=== PATIENT | male | born 1970 | race Caucasian/White ===

== ENCOUNTER 2018-05-14 14:19 | Inpatient (IN) | payer OTHER ==
[2018-05-14] MEDS ORDERED: Sodium Chloride 0.9% 1,000 ML IV STA (14:44)
--- NOTE | 2018-05-14 14:45 | ED PDOC ---
HPI: Chest Pain Time Seen by Provider: 05/14/18 14:43 Chief Complaint (Nursing): Chest Pain Chief Complaint (Provider): Chest pain History Per: Patient History/Exam Limitations: no limitations Onset/Duration Of Symptoms: Days (today) Additional Complaint(s): Pt. with chest pain and dyspnea off and on. No numbness, tingles, weakness. No headaches. No leg pain or long distance travel. No hormone pills. No abd pain. No cough. Past Medical History Reviewed: Nursing Documentation, Vital Signs Vital Signs: Last Vital Signs Temp 98.0 F 05/14/18 14:26 Pulse 59 L 05/14/18 14:26 Resp 16 05/14/18 14:26 BP 138/74 05/14/18 14:26 Pulse Ox 100 05/14/18 14:26 - Medical History PMH: HTN - Surgical History Surgical History: No Surg Hx - Family History Family History: States: Unknown Family Hx - Living Arrangements Living Arrangements: With Family - Allergies Allergies/Adverse Reactions: Allergies Allergy/AdvReac Type Severity Reaction Status Date / Time No Known Allergies Allergy Verified 05/14/18 14:26 Review of Systems ROS Statement: Except As Marked, All Systems Reviewed And Found Negative Cardiovascular: Positive for: Chest Pain Respiratory: Positive for: Shortness of Breath Physical Exam - Reviewed Nursing Documentation Reviewed: Yes Vital Signs Reviewed: Yes - Physical Exam Appears: Positive for: Non-toxic, No Acute Distress Head Exam: Positive for: ATRAUMATIC, NORMAL INSPECTION, NORMOCEPHALIC Skin: Positive for: Normal Color, Warm, DRY Eye Exam: Positive for: EOMI, Normal appearance, PERRL ENT: Positive for: Normal ENT Inspection Neck: Positive for: Normal, Painless ROM Cardiovascular/Chest: Positive for: Regular Rate, Rhythm Respiratory: Positive for: CNT, Normal Breath Sounds Gastrointestinal/Abdominal: Positive for: Normal Exam, Soft. Negative for: Tenderness Back: Positive for: Normal Inspection. Negative for: L CVA Tenderness, R CVA Tenderness Extremity: Positive for: Normal ROM. Negative for: Tenderness Neurological/Psych: Positive for: Awake, Alert, Normal Tone - Laboratory Results Result Diagrams: 05/14/18 14:52 05/14/18 14:52 Lab Results: no acute - ECG ECG: Positive for: Interpreted By Me, Viewed By Me ECG Rhythm: Positive for: Normal QRS, Normal ST Segment, Sinus Rhythm O2 Sat by Pulse Oximetry: 100 Pulse Ox Interpretation: Normal - Radiology X-Ray: Read By Radiologist X-Ray Interpretation: No Acute Disease - Progress ED Course And Treament: 1541: Stable. AAOx3. Pt. and family request Dr. Maher for admit. Spoke with Kenneth for Dr. Maher. Will admit tele. Pt. is pain free. Disposition - Clinical Impression Clinical Impression: Chest pain - Patient ED Disposition Is Patient to be Admitted: No Counseled Patient/Family Regarding: Studies Performed, Diagnosis - Disposition Disposition Time: 15:42 Condition: FAIR - Pt Status Changed To: Hospital Disposition Of: Observation - POA Present On Arrival: None
[2018-05-14 15:02] LABS: BASO % 0.5 % (0.0-2.0); EOS # 0.3 K/uL (0.0-0.7); EOS % 3.7 % (0.0-4.0); HEMOGLOBIN 14.8 g/dL (12.0-18.0); LYMPH # 3.3 K/uL (1.0-4.3); LYMPH % 40.3 % (20.0-40.0); MEAN CELL VOLUME 93.1 fl (80.0-94.0); MEAN CORPUSCULAR HEMOGLOBIN 31.9 pg (27.0-31.0); MEAN CORPUSCULAR HGB CONC 34.3 g/dL (33.0-37.0); MEAN PLATELET VOLUME 7.1 fl (7.2-11.7); MONO # 0.7 K/uL (0.0-0.8); MONO % 9.1 % (0.0-10.0); NEUT # 3.8 K/uL (1.8-7.0); NEUT % 46.4 % (50.0-75.0); NRBC % 0.3 % (0.0-0.0); PROTHROMBIN TIME 11.6 Seconds (9.8-13.1); RBC 4.63 Mil/uL (4.40-5.90); RED CELL DISTRIBUTION WIDTH 12.9 % (11.5-14.5); WHITE BLOOD COUNT 8.1 K/uL (4.8-10.8)
--- NOTE | 2018-05-14 15:06 | RAD ---
Date of service: 05/14/2018 HISTORY: Chest pain COMPARISON: No prior. TECHNIQUE: 1 view obtained. FINDINGS: LUNGS: No active pulmonary disease. PLEURA: No significant pleural effusion identified, no pneumothorax apparent. CARDIOVASCULAR: No aortic atherosclerotic calcification present. Normal cardiac size. No pulmonary vascular congestion. OSSEOUS STRUCTURES: No significant abnormalities. VISUALIZED UPPER ABDOMEN: Normal. OTHER FINDINGS: None. IMPRESSION: No active disease.
[2018-05-14 15:10] LABS: D DIMER < 200 ng/mlDDU (0-230)
[2018-05-14 15:14] LABS: ALB/GLOB RATIO 1.2 (1.0-2.1); ALBUMIN 4.3 g/dL (3.5-5.0); ALT/SGPT 20 U/L (21-72); AST/SGOT 21 U/L (17-59); BLOOD UREA NITROGEN 15 mg/dl (9-20); CALCIUM 9.5 mg/dL (8.4-10.2); GFR NON-AFRICAN AMERICAN > 60
--- NOTE | 2018-05-14 22:54 | CP.PCM.HP ---
History of Present Illness - History of Present Illness History of Present Illness: CC: Chest pain with associated dyspnea. HPI: 47 y/o Male pt with a PMH of HTN presented to the ED with chest pain and associated dyspnea. As per the pt and family member, he has been experiencing hypertensive episodes, blurry vision, and episodes of chest tightness/pain for the past 2 weeks. Also of note, the pt reports having mild gait imbalance, described as "feeling like I'm pulling to one side while walking". In the ED, the pt received ASA 325 mg and 1L of normal saline. At this time, the pt reports the chest pain has subsided; respirations are unlabored at rest. PMH: HTN. PSH: unremarkable. Allergies: NKDA. Subjective Review of Systems: reviewed and no additional remarkable complaints except intermittent chest tightness. Objective Vital Signs Stable Appears: Non-toxic, No Acute Distress. Head Exam: NORMAL INSPECTION, normocephalic. Eye Exam: Normal appearance, PERRLA, EOMI. Respiratory Exam: NORMAL BREATHING PATTERN, breath sounds clear to auscultation. Cardiovascular Exam: +S1, +S2; mildly bradycardic. GI & Abdominal Exam: Soft, non-tender, non-distended. Neurological Exam: Alert, Awake, Oriented x3. Psychiatric exam: Normal Affect, Normal Mood Skin Exam: Normal Color, Warm, Dry. Assessment/Impression/Plan: 1.) Chest Pain -Troponin's q8h x 3 ordered (First troponin was negative). -Initial EKG revealed NSR with questionable T-wave elevation in the V leads (my interpretation). Will order EKG's with each troponin to assess for changes. -Cardiology consult input appreciated. -Given episodes of recent blurry vision and mild gait imbalance, CT head w/o contrast ordered. -ECHO ordered. -Supplemental oxygen via 2L nasal cannula. -bloodwork- eval for hyperlipidemia and DM. Final 2 troponins ordered. -Pt will need stress test. Present on Admission - Present on Admission Any Indicators Present on Admission: No Past Patient History - Past Medical History & Family History Past Medical History?: No - Past Social History Smoking Status: Never Smoked - CARDIAC Hx Hypertension: Yes - HEMATOLOGICAL/ONCOLOGICAL Hx AIDS: No Hx Human Immunodeficiency Virus (HIV): No - MUSCULOSKELETAL/RHEUMATOLOGICAL Hx Falls: No - PSYCHIATRIC Hx Substance Use: No - SURGICAL HISTORY Hx Surgeries: No Meds Allergies/Adverse Reactions: Allergies Allergy/AdvReac Type Severity Reaction Status Date / Time No Known Allergies Allergy Verified 05/14/18 14:26 Results - Vital Signs Recent Vital Signs: Last Vital Signs Temp 98.1 F 05/14/18 15:40 Pulse 56 L 05/14/18 17:10 Resp 13 05/14/18 17:40 BP 125/87 05/14/18 17:10 Pulse Ox 100 05/14/18 17:10 - Labs Result Diagrams: 05/14/18 14:52 05/14/18 14:52 Labs: Laboratory Results - last 24 hr 05/14/18 05/14/18 05/14/18 14:52 14:52 14:52 WBC 8.1 RBC 4.63 Hgb 14.8 Hct 43.1 MCV 93.1 MCH 31.9 H MCHC 34.3 RDW 12.9 Plt Count 279 MPV 7.1 L Neut % (Auto) 46.4 L Lymph % (Auto) 40.3 H [place] % (Auto) 9.1 Eos % (Auto) 3.7 Baso % (Auto) 0.5 Neut # (Auto) 3.8 Lymph # (Auto) 3.3 [place] # (Auto) 0.7 Eos # (Auto) 0.3 Baso # (Auto) 0.0 PT 11.6 INR 1.0 APTT 37.0 D-Dimer, Quantitative < 200 Sodium 141 Potassium 4.2 Chloride 107 Carbon Dioxide 25 Anion Gap 13 BUN 15 Creatinine 0.9 Est GFR ( Amer) > 60 Est GFR (Non-Af Amer) > 60 Random Glucose 105 Calcium 9.5 Total Bilirubin 0.7 AST 21 ALT 20 L Alkaline Phosphatase 43 Troponin I < 0.0120 Total Protein 7.8 Albumin 4.3 Globulin 3.5 Albumin/Globulin Ratio 1.2 Assessment & Plan (1) Chest pain Status: Acute
[2018-05-15 06:17] LABS: BASO % 0.5 % (0.0-2.0); EOS # 0.4 K/uL (0.0-0.7); EOS % 4.6 % (0.0-4.0); HEMOGLOBIN 14.6 g/dL (12.0-18.0); LYMPH # 2.6 K/uL (1.0-4.3); LYMPH % 31.6 % (20.0-40.0); MEAN CELL VOLUME 90.8 fl (80.0-94.0); MEAN CORPUSCULAR HEMOGLOBIN 31.6 pg (27.0-31.0); MEAN CORPUSCULAR HGB CONC 34.8 g/dL (33.0-37.0); MEAN PLATELET VOLUME 7.3 fl (7.2-11.7); MONO # 0.6 K/uL (0.0-0.8); MONO % 7.7 % (0.0-10.0); NEUT # 4.5 K/uL (1.8-7.0); NEUT % 55.6 % (50.0-75.0); NRBC % 0.1 % (0.0-0.0); RBC 4.62 Mil/uL (4.40-5.90); RED CELL DISTRIBUTION WIDTH 13.1 % (11.5-14.5); WHITE BLOOD COUNT 8.1 K/uL (4.8-10.8)
[2018-05-15 06:20] LABS: ALB/GLOB RATIO 1.2 (1.0-2.1); ALT/SGPT 21 U/L (21-72); AST/SGOT 17 U/L (17-59); BLOOD UREA NITROGEN 17 mg/dl (9-20); CALCIUM 8.9 mg/dL (8.4-10.2); GFR NON-AFRICAN AMERICAN > 60; HDL CHOLESTEROL 38 MG/DL (30-70)
[2018-05-15 06:31] LABS: LDL CHOLESTEROL 119 mg/dL (0-129)
--- NOTE | 2018-05-15 12:13 | CT ---
Date of service: 05/14/2018 PROCEDURE: CT HEAD WITHOUT CONTRAST. HISTORY: unilateral weakness COMPARISON: No prior study available comparison TECHNIQUE: Axial computed tomography images were obtained through the head/brain without intravenous contrast. Radiation dose: Total exam DLP = 774.7 mGy-cm. This CT exam was performed using one or more of the following dose reduction techniques: Automated exposure control, adjustment of the mA and/or kV according to patient size, and/or use of iterative reconstruction technique. FINDINGS: HEMORRHAGE: No intracranial hemorrhage. BRAIN: No evidence of large acute infarct however note the possibility of a small hyperacute infarct cannot be excluded at there is any concern, recommend followup emergent MRI of the brain VENTRICLES: No obstructive hydrocephalus. CALVARIUM: Unremarkable. PARANASAL SINUSES: Unremarkable as visualized. No significant inflammatory changes. MASTOID AIR CELLS: Unremarkable as visualized. No inflammatory changes. OTHER FINDINGS: None. IMPRESSION: No acute intracranial hemorrhage. No evidence of large acute infarct however note the possibility of a small hyperacute infarct cannot be excluded at there is any concern, recommend followup emergent MRI of the brain
--- NOTE | 2018-05-15 14:33 | MRI ---
Date of service: 05/15/2018 PROCEDURE: MRI BRAIN WITHOUT CONTRAST HISTORY: r/o infarct; recommended EMERGENT MRI by radiology COMPARISON: Comparison made with prior CT scan brain 05/14/2018 TECHNIQUE: Multiplanar, multisequence MR images of the brain were obtained without intravenous contrast enhancement. FINDINGS: HEMORRHAGE: No acute parenchymal, subarachnoid or extra-axial hemorrhage. DWI: No evidence of an acute or early subacute infarction. BRAIN PARENCHYMA: A tiny focus of increased T2 signal seen in the left perifrontal horn white matter and possibly another in the right varma radiata nonspecific. VENTRICLES: Unremarkable. No hydrocephalus. CRANIUM: Unremarkable. ORBITS: Grossly unremarkable. PARANASAL SINUSES/MASTOIDS: Clear VASCULAR SYSTEM: Skull base flow voids intact. OTHER FINDINGS: None. IMPRESSION: No evidence of acute intracranial hemorrhage or infarction. Tiny nonspecific focus of increased T2 signal seen left perifrontal horn white matter possibly another in the right Varma radiata
--- NOTE | 2018-05-15 15:42 | CP.PCM.PN ---
Subjective - Date & Time of Evaluation Date of Evaluation: 05/15/18 Time of Evaluation: 15:40 - Subjective Subjective: Pt seen and assessed at bedside. No acute overnight events reported. Remains with bradycardia in the 40-50's BPM range. CT head reviewed; no acute hemorrhage, however the possibility of small hyperacute infarct cannot be excluded. Pt will have a follow up brain MRI for further investigation. Subjective Review of Systems: reviewed and no additional remarkable complaints. Objective Vital Signs Stable Appears: Non-toxic, No Acute Distress. Head Exam: NORMAL INSPECTION, normocephalic. Eye Exam: Normal appearance, PERRLA, EOMI. Respiratory Exam: NORMAL BREATHING PATTERN, breath sounds clear to auscultation. Cardiovascular Exam: +S1, +S2; mildly bradycardic. GI & Abdominal Exam: Soft, non-tender, non-distended. Neurological Exam: Alert, Awake, Oriented x3. Psychiatric exam: Normal Affect, Normal Mood Skin Exam: Normal Color, Warm, Dry. Assessment/Impression/Plan: 1.) Chest Pain -No active chest pain; troponin's x3 were negative. -No major changes in remaining 2 EKG's performed. -MRI of the brain was ordered to further investigate CT head results. -Neurology and Cardiology consults input appreciated. -Bilateral cartoid duplex ordered to r/o carotid stenosis/occlusion. -LDL and triglycerides elevated; pt started on Statin and omega-3. -Pt to undergo ECHO in the morning. Objective - Vital Signs/Intake and Output Vital Signs (last 24 hours): Temp Pulse Resp BP Pulse Ox 98.6 F 51 L 13 113/70 99 05/15/18 13:00 05/15/18 13:00 05/15/18 13:00 05/15/18 13:00 05/15/18 13:00 - Medications Medications: Current Medications Aspirin (Ecotrin) 81 mg PO DAILY [facility] Last Admin: 05/15/18 10:41 Dose: 81 mg Atorvastatin Calcium (Lipitor) 40 mg PO [facility] [id number] Ethyl Esters (Lovaza) 2 gm PO BID [facility] - Labs Labs: 05/15/18 04:25 05/15/18 04:25 PT 11.6 Seconds (9.8-13.1) 05/14/18 14:52 INR 1.0 05/14/18 14:52 APTT 37.0 Seconds (25.6-37.1) 05/14/18 14:52 Assessment and Plan (1) Chest pain Status: Acute
--- NOTE | 2018-05-15 16:43 | CARD ---
APPROVED REPORT Date of service: 05/14/2018 EKG Measurement Heart [id number] <Conclusion> Normal sinus rhythm Normal ECG
--- NOTE | 2018-05-15 17:27 | US ---
Date of service: Rad on that septic no rule out septic joint right upper 05/15/2018 PROCEDURE: Duplex ultrasound of the carotid and vertebral arteries. HISTORY: Rule out stenosis COMPARISON: None available. TECHNIQUE: Grayscale and duplex Doppler evaluation of the cervical carotid and vertebral arteries were performed. The common carotid, carotid bifurcations and cervical ICA and proximal ECA were evaluated. The vertebral arteries were evaluated for gross patency and direction. FINDINGS: RIGHT CAROTID ARTERIES: Common Carotid Artery: Normal. Maximal flow velocity of 122 cm/s. Carotid Bifurcation: Normal. Internal Carotid Artery:Normal. Maximal flow velocity of 86.4 cm/s. External Carotid Artery (proximal branches): Normal. Maximal flow velocity of 92.7 cm/s. ICA/CCA Ratio: 0.8 LEFT CAROTID ARTERIES: Common Carotid Artery: Normal. Maximal flow velocity of 142.9 cm/s. Carotid Bifurcation: Normal. Internal Carotid Artery:Normal. Maximal flow velocity of 66.8 cm/s. External Carotid Artery (proximal branches): Normal. Maximal flow velocity of 88.8 cm/s. ICA/CCA Ratio: 0.8 VERTEBRAL ARTERIES: Right Vertebral Artery: Patent. Antegrade flow. Left Vertebral Artery: Patent. Antegrade flow. OTHER FINDINGS: No atherosclerotic calcification present IMPRESSION: No evidence of significant stenosis.
--- NOTE | 2018-05-15 19:56 | CP.PCM.CON ---
History of Present Illness - History of Present Illness History of Present Illness: Consultation for evauation of chest pain HPI: Daquan is a 47-year-old male who was brought by his sisters and who are ICU nurses for evaluation of symptoms of right-sided weakness and chest pains according to the patient he has been having ongoing episodes of mild chest discomfort with exertion of any which she noticed while he was taking up a flight of stairs he was unsure of his symptoms and then started taking the stairs to reevaluate his some self and noticed that he was getting worsening dyspnea on exertion accompanied with substernal pressure-like sensation. Last week while he was walking over for a coffee break he noticed his left side was getting weak and he has to literally hold himself as he was falling on one side symptoms lasted for 10-15 minutes and then spontaneously resolved on its own he also complains of feeling generalized fatigue and lethargy ongoing for a few weeks Review of Systems - Review of Systems Systems not reviewed;Unavailable: Acuity of Condition - Constitutional Constitutional: As Per HPI - EENT Eyes: As Per HPI Ears: As Per HPI Nose/Mouth/Throat: As Per HPI - Cardiovascular Cardiovascular: As Per HPI - Respiratory Respiratory: As Per HPI - Gastrointestinal Gastrointestinal: As Per HPI - Genitourinary Genitourinary: As Per HPI - Reproductive: Male Reproductive:Male: As Per HPI - Musculoskeletal Musculoskeletal: As Per HPI - Integumentary Integumentary: As Per HPI - Neurological Neurological: As Per HPI - Psychiatric Psychiatric: As Per HPI - Endocrine Endocrine: As Per HPI - Hematologic/Lymphatic Hematologic: As Per HPI Past Patient History - Past Medical History & Family History Past Medical History?: No - Past Social History Smoking Status: Never Smoked - CARDIAC Hx Hypertension: Yes - HEMATOLOGICAL/ONCOLOGICAL Hx AIDS: No Hx Human Immunodeficiency Virus (HIV): No - MUSCULOSKELETAL/RHEUMATOLOGICAL Hx Falls: No - PSYCHIATRIC Hx Substance Use: No - SURGICAL HISTORY Hx Surgeries: No Meds Allergies/Adverse Reactions: Allergies Allergy/AdvReac Type Severity Reaction Status Date / Time No Known Allergies Allergy Verified 05/14/18 14:26 - Medications Medications: Current Medications Aspirin (Ecotrin) 81 mg PO DAILY [facility] Last Admin: 05/15/18 10:41 Dose: 81 mg Atorvastatin Calcium (Lipitor) 40 mg PO [facility] [id number] Ethyl Esters (Lovaza) 2 gm PO DAILY [facility] Physical Exam - Constitutional Appears: Well - Head Exam Head Exam: ATRAUMATIC, NORMAL INSPECTION, NORMOCEPHALIC - Eye Exam Eye Exam: EOMI, Normal appearance, PERRL Pupil Exam: NORMAL ACCOMODATION, PERRL - ENT Exam ENT Exam: Mucous Membranes Moist, Normal Exam - Neck Exam Neck exam: Positive for: Normal Inspection - Respiratory Exam Respiratory Exam: Clear to Auscultation Bilateral, NORMAL BREATHING PATTERN - Cardiovascular Exam Cardiovascular Exam: REGULAR RHYTHM - GI/Abdominal Exam GI & Abdominal Exam: Normal Bowel Sounds, Soft. absent: Tenderness - Extremities Exam Extremities exam: Positive for: normal inspection - Back Exam Back exam: NORMAL INSPECTION - Neurological Exam Neurological exam: Alert, CN II-XII Intact, Normal Gait, Oriented x3, Reflexes Normal - Psychiatric Exam Psychiatric exam: Normal Affect, Normal Mood - Skin Skin Exam: Dry, Intact, Normal Color, Warm Results - Vital Signs Recent Vital Signs: Last Vital Signs Temp 97.3 F L 05/15/18 16:00 Pulse 59 L 05/15/18 17:00 Resp 20 05/15/18 17:00 BP 115/74 05/15/18 17:00 Pulse Ox 99 05/15/18 17:00 - Labs Result Diagrams: 05/16/18 05:31 05/16/18 06:55 Labs: Laboratory Results - last 24 hr 05/15/18 05/15/18 05/15/18 00:30 04:25 04:25 WBC 8.1 RBC 4.62 Hgb 14.6 Hct 42.0 MCV 90.8 D MCH 31.6 H MCHC 34.8 RDW 13.1 Plt Count 281 MPV 7.3 Neut % (Auto) 55.6 Lymph % (Auto) 31.6 [place] % (Auto) 7.7 Eos % (Auto) 4.6 H Baso % (Auto) 0.5 Neut # (Auto) 4.5 Lymph # (Auto) 2.6 [place] # (Auto) 0.6 Eos # (Auto) 0.4 Baso # (Auto) 0.0 Sodium 139 Potassium 4.1 Chloride 107 Carbon Dioxide 24 Anion Gap 12 BUN 17 Creatinine 0.9 Est GFR ( Amer) > 60 Est GFR (Non-Af Amer) > 60 Random Glucose 98 Calcium 8.9 Phosphorus 3.2 Magnesium 2.2 Total Bilirubin 0.9 AST 17 ALT 21 Alkaline Phosphatase 45 Troponin I < 0.0120 Total Protein 7.4 Albumin 4.0 Globulin 3.4 Albumin/Globulin Ratio 1.2 Triglycerides 206 H Cholesterol 207 H LDL Cholesterol Direct 119 HDL Cholesterol 38 05/15/18 04:30 WBC RBC Hgb Hct MCV MCH MCHC RDW Plt Count MPV Neut % (Auto) Lymph % (Auto) [place] % (Auto) Eos % (Auto) Baso % (Auto) Neut # (Auto) Lymph # (Auto) [place] # (Auto) Eos # (Auto) Baso # (Auto) Sodium Potassium Chloride Carbon Dioxide Anion Gap BUN Creatinine Est GFR ( Amer) Est GFR (Non-Af Amer) Random Glucose Calcium Phosphorus Magnesium Total Bilirubin AST ALT Alkaline Phosphatase Troponin I < 0.0120 Total Protein Albumin Globulin Albumin/Globulin Ratio Triglycerides Cholesterol LDL Cholesterol Direct HDL Cholesterol Assessment & Plan (1) Chest pain Assessment and Plan: echo stress test Status: Acute (2) DICKINSON (dyspnea on exertion) Status: Acute (3) TIA (transient ischemic attack) Assessment and Plan: neuro eval Status: Acute
[2018-05-16 07:21] LABS: HEMOGLOBIN 16.1 g/dL (12.0-18.0); MEAN CELL VOLUME 91.2 fl (80.0-94.0); MEAN CORPUSCULAR HEMOGLOBIN 31.3 pg (27.0-31.0); MEAN CORPUSCULAR HGB CONC 34.3 g/dL (33.0-37.0); RBC 5.15 Mil/uL (4.40-5.90); RED CELL DISTRIBUTION WIDTH 12.8 % (11.5-14.5); WHITE BLOOD COUNT 7.5 K/uL (4.8-10.8)
[2018-05-16 07:27] LABS: BLOOD UREA NITROGEN 17 mg/dl (9-20); CALCIUM 9.5 mg/dL (8.4-10.2); GFR NON-AFRICAN AMERICAN > 60
[2018-05-16] MEDS ORDERED: Omega-3-Acid Ethyl Esters 1 GM Cap PO SCH (09:00)
--- NOTE | 2018-05-16 09:29 | CARD ---
APPROVED REPORT Date of service: 05/15/2018 EKG Measurement Heart [id number] MI [id number] <Conclusion> Sinus bradycardia Otherwise normal ECG
[2018-05-16] MEDS ORDERED: Aminophylline 25 mg/ml Inj ONE (13:47)
--- NOTE | 2018-05-16 13:51 | CP.PCM.CON ---
History of Present Illness - History of Present Illness History of Present Illness: Neurology Consultation Note: Consult requested by Dr. Maher Mr. Dumont is a 47-year-old man with a past medical history of HTN, who p resented for chest pain and shortness of breath. He also complains of having had two self-limiting episodes of light-headedness as well as feeling as though he was leaning toward the right. He denies visual changes, headaches, speech difficulty or other focal neurological deficits. MRI of the brain was done and did not show any concerning acute findings. He is scheduled for a stress test after episodes of bradycardia and dyspnea. Review of Systems - Constitutional Constitutional: As Per HPI - EENT Eyes: absent: As Per HPI, Blind Spots, Blurred Vision, Change in Vision, Decreased Night Vision, Diplopia, Discharge, Dry Eye, Exophthalmos, Floaters, Irritation, Itchy Eyes, Loss of Peripheral Vision, Pain, Photophobia, Requires Corrective Lenses, Sees Flashes, Spots in Vision, Tunnel Vision, Other Visual Disturbances, Loss of Vision, Other Ears: absent: As Per HPI, Decreased Hearing, Ear Discharge, Ear Pain, Tinnitus, Abnormal Hearing, Disequilibrium, Dizziness, Other Nose/Mouth/Throat: absent: As Per HPI, Epistaxis, Nasal Congestion, Nasal Discharge, Nasal Obstruction, Nasal Trauma, Nose Pain, Post Nasal Drip, Sinus Pain, Sinus Pressure, Bleeding Gums, Change in Voice, Dental Pain, Dry Mouth, Dysphagia, Halitosis, Hoarsness, Lip Swelling, Mouth Lesions, Mouth Pain, Odynophagia, Sore Throat, Throat Swelling, Tongue Swelling, Facial Pain, Neck Pain, Neck Mass, Other - Cardiovascular Cardiovascular: As Per HPI - Gastrointestinal Gastrointestinal: As Per HPI - Genitourinary Genitourinary: absent: As Per HPI, Change in Urinary Stream, Difficulty Urinating, Dysuria, Flank Pain, Hematuria, Pyuria, Nocturia, Urinary Incontinence, Urinary Frequency, Urinary Hesitance, Urinary Urgency, Voiding Freq/Small Amts, Freq UTI, Hx Renal/Bladder Calculi, Hx /Renal Surgery, Bladder Distension, Other - Musculoskeletal Musculoskeletal: absent: As Per HPI, Abnormal Gait, Arthralgias, Atrophy, Back Pain, Deformity, Joint Swelling, Limited Range of Motion, Loss of Height, Muscle Cramps, Muscle Weakness, Myalgias, Neck Pain, Numbness, Radiating Pain into Limb, Stiffness, Tingling, Other - Integumentary Integumentary: absent: As Per HPI, Acne, Alopecia, Bleeding Lesions, Change in Hair, Change in Nails, Change in Pigmentation, Changing Lesions, Dry Skin, Erythema, Furuncle, Hirsutism, Lesions, New Lesions, Non-Healing Lesions, Photos ensitivity, Pruritus, Rash, Skin Pain, Skin Ulcer, Sores, Striae, Swelling, Unusual Bruising, Wounds, Jaundice, Other - Neurological Neurological: As Per HPI - Psychiatric Psychiatric: absent: As Per HPI, Abnormal Sleep Pattern, Anhedonia, Anxiety, Auditory Hallucinations, Behavioral Changes, Change in Appetite, Change in Libido, Confusion, Depression, Difficulty Concentrating, Hallucinations, Homicidal Ideation, Hopelessness, Irritability, Memory Loss, Mood Swings, Panic Attacks, Paranoia, Suicidal Ideation, Visual Hallucinations, Tactile Hallucinations, Other - Endocrine Endocrine: absent: As Per HPI, Change in Body Appearance, Change in Libido, Cold Intolorance, Deepening of Voice, Excessive Sweating, Fatigue, Flushing, Heat Intolorance, Increase in Ring/Shoe/Hat Size, Palpitations, Polydipsia, Polyphagia, Polyuria, Other - Hematologic/Lymphatic Hematologic: absent: As Per HPI, Easy Bleeding, Easy Bruising, Lymphadenopathy, Other Past Patient History - Past Medical History & Family History Past Medical History?: No - Past Social History Smoking Status: Never Smoked - CARDIAC Hx Hypertension: Yes - HEMATOLOGICAL/ONCOLOGICAL Hx AIDS: No Hx Human Immunodeficiency Virus (HIV): No - MUSCULOSKELETAL/RHEUMATOLOGICAL Hx Falls: No - PSYCHIATRIC Hx Substance Use: No - SURGICAL HISTORY Hx Surgeries: No Meds Allergies/Adverse Reactions: Allergies Allergy/AdvReac Type Severity Reaction Status Date / Time No Known Allergies Allergy Verified 05/14/18 14:26 - Medications Medications: Current Medications Aspirin (Ecotrin) 81 mg PO DAILY [facility] Last Admin: 05/15/18 10:41 Dose: 81 mg Atorvastatin Calcium (Lipitor) 40 mg PO [facility] Last Admin: 05/15/18 21:02 Dose: 40 mg Ulpon-1-Yang Ethyl Esters (Lovaza) 2 gm PO DAILY [facility] Physical Exam - Constitutional Appears: Well - Head Exam Head Exam: ATRAUMATIC, NORMAL INSPECTION, NORMOCEPHALIC - Eye Exam Eye Exam: EOMI, Normal appearance, PERRL Pupil Exam: NORMAL ACCOMODATION, PERRL - ENT Exam ENT Exam: Mucous Membranes Moist, Normal Exam - Neck Exam Neck exam: Positive for: Normal Inspection - Respiratory Exam Respiratory Exam: Clear to Auscultation Bilateral, NORMAL BREATHING PATTERN - Cardiovascular Exam Cardiovascular Exam: REGULAR RHYTHM, +S1, +S2 - GI/Abdominal Exam GI & Abdominal Exam: Normal Bowel Sounds, Soft. absent: Tenderness - Extremities Exam Extremities exam: Positive for: normal inspection - Back Exam Back exam: NORMAL INSPECTION - Neurological Exam Neurological exam: Alert, CN II-XII Intact, Normal Gait, Oriented x3, Reflexes Normal - Psychiatric Exam Psychiatric exam: Normal Affect, Normal Mood - Skin Skin Exam: Dry, Intact, Normal Color, Warm Results - Vital Signs Recent Vital Signs: Last Vital Signs Temp 98.1 F 05/16/18 12:20 Pulse 55 L 05/16/18 12:20 Resp 13 05/16/18 12:20 BP 107/57 L 05/16/18 05:00 Pulse Ox 100 05/16/18 12:20 - Labs Result Diagrams: 05/16/18 05:31 05/16/18 06:55 Labs: Laboratory Results - last 24 hr 05/15/18 05/16/18 05/16/18 04:25 05:31 06:55 WBC 7.5 RBC 5.15 Hgb 16.1 Hct 47.0 MCV 91.2 MCH 31.3 H MCHC 34.3 RDW 12.8 Plt Count 303 Sodium 141 Potassium 4.2 Chloride 104 Carbon Dioxide 26 Anion Gap 15 BUN 17 Creatinine 0.9 Est GFR ( Amer) > 60 Est GFR (Non-Af Amer) > 60 Random Glucose 111 H Hemoglobin A1c 5.6 Calcium 9.5 Assessment & Plan (1) Gait instability Assessment and Plan: This was a transient occurrence, but with the cardiac history, I recommend the patient continues aspirin 81 mg daily as well as lipitor 40 mg daily. So far, MRI is not concerning for ischemic events; however, a CTA of the head/neck is recommended to evaluate for vertebro-basilar insufficiency since the patient had transient cerebellar signs. If CTA is normal, he may be followed as an outpatient by neurology. Thank you for this consultation. Status: Acute
[2018-05-16] MEDS ORDERED: Sodium Chloride 0.9% 50 ML IV ONE (15:35)
[2018-05-16] MEDS ORDERED: Iodixanol 320 MG/ML 100 ML BOTTLE IV ONE (15:35)
[2018-05-16] MEDS: Omega-3-Acid Ethyl Esters 1 GM Cap PO SCH (16:14)
--- NOTE | 2018-05-16 16:28 | CT ---
Date of service: 05/16/2018 PROCEDURE: CT Angiography of the Brain. HISTORY: leaning toward the right COMPARISON: None available. TECHNIQUE: CT angiography of the intracranial arteries was performed. Coronal and sagittal maximum intensity projection reformated images were generated. Radiation dose: Total exam DLP = 457.07 mGy-cm. This CT exam was performed using one or more of the following dose reduction techniques: Automated exposure control, adjustment of the mA and/or kV according to patient size, and/or use of iterative reconstruction technique. FINDINGS: RIGHT CAROTID ARTERIES: Common Carotid Artery: Normal. Carotid Bifurcation: Normal. Internal Carotid Artery:Normal. External Carotid Artery (proximal branches): Normal. LEFT CAROTID ARTERIES: Common Carotid Artery: Normal. Carotid Bifurcation: Normal. Internal Carotid Artery:Normal. External Carotid Artery (proximal branches): Normal. VERTEBRAL ARTERIES: Right Vertebral Artery: Small in size Left Vertebral Artery: The left vertebral artery is dominant INTERNAL CEREBRAL ARTERIES: Unremarkable. The skull base, petrous, cavernous and supraclinoid segments are bilaterally widely patent. ANTERIOR CEREBRAL ARTERIES: Unremarkable. A1 and A2 segments are widely patent. Smaller distal branches unremarkable, as visualized. MIDDLE CEREBRAL ARTERIES: Unremarkable. M1 and M2 segments are widely patent. Perisylvian branches grossly symmetric. POSTERIOR CIRCULATION: Basilar Artery: Unremarkable. Distal Vertebral Arteries: Unremarkable. Posterior Cerebral Arteries: The right P1 is small in size. There is origin of the right posterior cerebral artery. Posterior Inferior Cerebellar Arteries: Unremarkable. ANEURYSM/ VASCULAR MALFORMATIONS: None. OTHER FINDINGS: 0.5 centimeter low-attenuation nodule at the left adrenal gland. IMPRESSION: Unremarkable CT Angiography of the neck and brain.
--- NOTE | 2018-05-16 19:51 | CP.PCM.PN ---
Subjective - Date & Time of Evaluation Date of Evaluation: 05/16/18 Time of Evaluation: 10:00 - Subjective Subjective: patient seen and examined at bedside. Interim events noted No complaints offered at this time denies cp/sob/fever/chills. available diagnostic data reviewed Review of Systems All systems: reviewed and no additional remarkable complaints except mentioned above Objective Vital Signs Stable - Constitutional Appears: Non-toxic, No Acute Distress Head Exam: NORMAL INSPECTION Eye Exam: Normal appearance Respiratory Exam: NORMAL BREATHING PATTERN Cardiovascular Exam: +S1, +S2 GI & Abdominal Exam: Soft Neurological Exam: Alert, Awake Psychiatric exam: Normal Affect, Normal Mood Skin Exam: Normal Color, Warm Assessment and Plan monitor vitals monitor labs Cont meds Cont tx consultants appreciated input stress test pending rest of plan as ordered Objective - Vital Signs/Intake and Output Vital Signs (last 24 hours): Temp Pulse Resp BP Pulse Ox 98 F 54 L 18 147/82 99 05/16/18 18:49 05/16/18 18:49 05/16/18 18:49 05/16/18 18:49 05/16/18 18:49 - Medications Medications: Current Medications Aspirin (Ecotrin) 81 mg PO DAILY [facility] Last Admin: 05/16/18 16:14 Dose: 81 mg Atorvastatin Calcium (Lipitor) 40 mg PO HS [facility] Last Admin: 05/15/18 21:02 Dose: 40 mg Apyqi-2-Brhh Ethyl Esters (Lovaza) 2 gm PO DAILY [facility] Last Admin: 05/16/18 16:14 Dose: 2 gm - Labs Labs: 05/16/18 05:31 05/16/18 06:55 PT 11.6 Seconds (9.8-13.1) 05/14/18 14:52 INR 1.0 05/14/18 14:52 APTT 37.0 Seconds (25.6-37.1) 05/14/18 14:52 Assessment and Plan (1) Chest pain Status: Acute (2) Gait instability Status: Acute
--- NOTE | 2018-05-16 20:55 | CARD ---
APPROVED REPORT Date of service: 05/16/2018 EXAM: Two-dimensional and M-mode echocardiogram with Doppler and color Doppler. Other Information Quality : GoodRhythm : NSR INDICATION Chest Pain 2D DIMENSIONS IVSd1.26 (0.7-1.1cm)LVDd4.56 (3.9-5.9cm) LVOT Diameter2.36 (1.8-2.4cm)PWd1.07 (0.7-1.1cm) IVSs1.46 (0.8-1.2cm)LVDs3.13 (2.5-4.0cm) FS (%) 31.4 %PWs1.42 (0.8-1.2cm) M-Mode DIMENSIONS Left Atrium (MM)3.79 (2.5-4.0cm)IVSd1.35 (0.7-1.1cm) Aortic Root3.00 (2.2-3.7cm)LVDd5.68 (4.0-5.6cm) Aortic Cusp Exc.1.88 (1.5-2.0cm)PWd1.03 (0.7-1.1cm) IVSs1.82 cmFS (%) 40 % LVDs3.41 (2.0-3.8cm)PWs1.53 cm Aortic Valve AoV Peak Piqumdvm765.5cm/sAoV VTI22.3cmAO Peak GR.4mmHg LVOT Peak Psonepdc51.2cm/sLVOT VTI20.54cmAO Mean GR.3mmHg PAVAN (VMAX)2.92yu9JBZ (VTI)2.29cm2 Mitral Valve MV E Ysnotfjn02.8cm/sMV DECEL BSNO803cqAT A Qfdumjzf83.6cm/s MV EML77qsE/A ratio1.4MVA (PHT)3.33cm2 TDI Lateral E' Peak V12.47cm/sMedial E' Peak V9.37cm/sE/Lateral E'4.4 E/Medial E'5.8 LEFT VENTRICLE The left ventricle is normal size. There is normal left ventricular wall thickness. The left ventricular systolic function is normal. The estimated ejection fraction is 55-60% No regional wall motion abnormalities noted.. The left ventricular diastolic function is normal. No left ventricle thrombus noted on this study. There is no ventricular septal defect visualized. There is no left ventricular aneurysm. There is no mass noted in the left ventricle. RIGHT VENTRICLE The right ventricle is normal size. There is normal right ventricular wall thickness. The right ventricular systolic function is normal. ATRIA The left atrium size is normal. The right atrium size is normal. The interatrial septum is intact with no evidence for an atrial septal defect. AORTIC VALVE The aortic valve is normal in structure. No aortic regurgitation is present. There is no aortic valvular stenosis. There is no aortic valvular vegetation. MITRAL VALVE The mitral valve is normal in structure. There is no evidence of mitral valve prolapse. There is no mitral valve stenosis. There is mild mitral valve regurgitation noted. TRICUSPID VALVE The tricuspid valve is normal in structure. There is no tricuspid valve regurgitation noted. There is no tricuspid valve prolapse or vegetation. There is no tricuspid valve stenosis. PULMONIC VALVE The pulmonary valve is normal in structure. There is no pulmonic valvular regurgitation. There is no pulmonic valvular stenosis. GREAT VESSELS The aortic root is normal in size. The ascending aorta is normal in size. The pulmonary artery is normal. The IVC is normal in size and collapses >50% with inspiration. PERICARDIAL EFFUSION There is no pericardial effusion. There is no pleural effusion. <Conclusion> The estimated ejection fraction is 55-60% The left ventricular diastolic function is normal. The left atrium size is normal. There is mild mitral valve regurgitation noted. There is no tricuspid valve regurgitation noted.
--- NOTE | 2018-05-17 09:30 | CP.PCM.PN ---
Subjective - Date & Time of Evaluation Date of Evaluation: 05/17/18 Time of Evaluation: 09:28 - Subjective Subjective: Loc [place], PGY-1, Cardiology Progress Note for Dr. Cochran Patient seen and evaluated at bedside. Patient had no acute overnight events. Patient denies any symptoms at this time. Objective - Vital Signs/Intake and Output Vital Signs (last 24 hours): Temp Pulse Resp BP Pulse Ox 97.4 F L 50 L 20 127/77 98 05/17/18 07:49 05/17/18 07:49 05/17/18 07:49 05/17/18 07:49 05/17/18 07:49 - Medications Medications: Current Medications Aspirin (Ecotrin) 81 mg PO DAILY [facility] Last Admin: 05/16/18 16:14 Dose: 81 mg Atorvastatin Calcium (Lipitor) 40 mg PO HS [facility] Last Admin: 05/16/18 21:21 Dose: 40 mg Cxkrl-8-Tdve Ethyl Esters (Lovaza) 2 gm PO DAILY [facility] Last Admin: 05/16/18 16:14 Dose: 2 gm - Labs Labs: 05/16/18 05:31 05/16/18 06:55 PT 11.6 Seconds (9.8-13.1) 05/14/18 14:52 INR 1.0 05/14/18 14:52 APTT 37.0 Seconds (25.6-37.1) 05/14/18 14:52 - Constitutional Appears: Well, Non-toxic, No Acute Distress - Head Exam Head Exam: ATRAUMATIC, NORMAL INSPECTION - Eye Exam Eye Exam: EOMI, PERRL - ENT Exam ENT Exam: Mucous Membranes Moist - Respiratory Exam Respiratory Exam: Clear to Ausculation Bilateral, NORMAL BREATHING PATTERN. absent: Rales, Rhonchi, Wheezes - Cardiovascular Exam Cardiovascular Exam: REGULAR RHYTHM, RRR, +S1, +S2 - GI/Abdominal Exam GI & Abdominal Exam: Soft, Normal Bowel Sounds. absent: Tenderness - Extremities Exam Extremities Exam: Full ROM, Normal Inspection. absent: Pedal Edema - Neurological Exam Neurological Exam: Alert, Awake, CN II-XII Intact, Oriented x3 - Skin Skin Exam: Dry, Intact, Normal Color Assessment and Plan - Assessment and Plan (Free Text) Assessment: Gait instability Chest Pain with ACS rule out Hypertension Plan: Gait instability Chest Pain with ACS rule out Hypertension EKG: Sinus Vincent HR: 50 Carotid artery U/S: unremarkable Brain MRI, Head/Neck CTA: no acute intracranial findings, however tiny nonspecific focus of increased T2 signal in left perifrontal horn white matter on brain MRI Echocardiogram: LVEF 55-60% Stress test: mild anteroseptal defect Tropx3: negative T Chol: 207 LDL: 119 HDL: 38 HgbA1c: 5.6 Patient can be discharged from the cardiac standpoint. Patient should follow up outpatient with Dr. Cochran for RUTHY to evaluate for atheroma, ASD, or PFO. Medications: Aspirin 81 mg Lipitor 40mg Lovaza (Omege 3 FA)
--- NOTE | 2018-05-17 09:49 | CP.PCM.PN ---
Subjective - Date & Time of Evaluation Date of Evaluation: 05/16/18 Time of Evaluation: 14:00 - Subjective Subjective: no cp or sob stress test today Objective - Vital Signs/Intake and Output Vital Signs (last 24 hours): Temp Pulse Resp BP Pulse Ox 97.4 F L 50 L 20 127/77 98 05/17/18 07:49 05/17/18 07:49 05/17/18 07:49 05/17/18 07:49 05/17/18 07:49 - Medications Medications: Current Medications Aspirin (Ecotrin) 81 mg PO DAILY [facility] Last Admin: 05/16/18 16:14 Dose: 81 mg Atorvastatin Calcium (Lipitor) 40 mg PO HS [facility] Last Admin: 05/16/18 21:21 Dose: 40 mg Fnehh-7-Fkin Ethyl Esters (Lovaza) 2 gm PO DAILY [facility] Last Admin: 05/16/18 16:14 Dose: 2 gm - Labs Labs: 05/16/18 05:31 05/16/18 06:55 PT 11.6 Seconds (9.8-13.1) 05/14/18 14:52 INR 1.0 05/14/18 14:52 APTT 37.0 Seconds (25.6-37.1) 05/14/18 14:52 - Constitutional Appears: Well - Head Exam Head Exam: ATRAUMATIC, NORMAL INSPECTION, NORMOCEPHALIC - Eye Exam Eye Exam: EOMI, Normal appearance, PERRL Pupil Exam: NORMAL ACCOMODATION, PERRL - ENT Exam ENT Exam: Mucous Membranes Moist, Normal Exam - Neck Exam Neck Exam: Full ROM, Normal Inspection. absent: Lymphadenopathy - Respiratory Exam Respiratory Exam: Clear to Ausculation Bilateral, NORMAL BREATHING PATTERN - Cardiovascular Exam Cardiovascular Exam: REGULAR RHYTHM, +S1, +S2. absent: Murmur - GI/Abdominal Exam GI & Abdominal Exam: Soft, Normal Bowel Sounds. absent: Tenderness - Extremities Exam Extremities Exam: Full ROM, Normal Capillary Refill, Normal Inspection. absent: Joint Swelling, Pedal Edema - Back Exam Back Exam: NORMAL INSPECTION - Neurological Exam Neurological Exam: Alert, Awake, CN II-XII Intact, Normal Gait, Oriented x3 - Psychiatric Exam Psychiatric exam: Normal Affect, Normal Mood - Skin Skin Exam: Dry, Intact, Normal Color, Warm Assessment and Plan (1) Chest pain Assessment & Plan: stress test echo Status: Acute (2) DICKINSON (dyspnea on exertion) Status: Acute (3) TIA (transient ischemic attack) Assessment & Plan: neuro eval MRI Status: Acute
[2018-05-17] MEDS: Omega-3-Acid Ethyl Esters 1 GM Cap PO SCH (10:04)
--- NOTE | 2018-05-17 11:01 | CP.PCM.PN ---
Subjective - Date & Time of Evaluation Date of Evaluation: 05/17/18 Time of Evaluation: 10:59 - Subjective Subjective: Neuro Follow-Up: Mr. Dumont was evaluated this morning at bedside. He states that he feels good today; is very eager to be d/c home due to work. He denies further episodes of feeling unbalanced and leaning towards the right side. He denies h/a, dizziness, visual changes, chest pain, palpitations, sob, abd pain, paresthesias. Objective - Vital Signs/Intake and Output Vital Signs (last 24 hours): Temp Pulse Resp BP Pulse Ox 97.4 F L 71 20 127/77 99 05/17/18 07:49 05/17/18 10:29 05/17/18 07:49 05/17/18 07:49 05/17/18 10:29 - Medications Medications: Current Medications Aspirin (Ecotrin) 81 mg PO DAILY [facility] Last Admin: 05/17/18 10:04 Dose: 81 mg Atorvastatin Calcium (Lipitor) 40 mg PO [facility] Last Admin: 05/16/18 21:21 Dose: 40 mg Qbbzm-5-Ihsx Ethyl Esters (Lovaza) 2 gm PO DAILY [facility] Last Admin: 05/17/18 10:04 Dose: 2 gm - Labs Labs: 05/16/18 05:31 05/16/18 06:55 PT 11.6 Seconds (9.8-13.1) 05/14/18 14:52 INR 1.0 05/14/18 14:52 APTT 37.0 Seconds (25.6-37.1) 05/14/18 14:52 - Constitutional Appears: Well, Non-toxic, No Acute Distress - Head Exam Head Exam: ATRAUMATIC, NORMAL INSPECTION, NORMOCEPHALIC - Eye Exam Eye Exam: EOMI, Normal appearance, PERRL Pupil Exam: NORMAL ACCOMODATION, PERRL - ENT Exam ENT Exam: Mucous Membranes Moist - Neck Exam Neck Exam: Full ROM, Normal Inspection - Respiratory Exam Respiratory Exam: NORMAL BREATHING PATTERN - Extremities Exam Extremities Exam: Full ROM, Normal Inspection. absent: Calf Tenderness, Pedal Edema - Back Exam Back Exam: Full ROM - Neurological Exam Neurological Exam: Alert, Awake, CN II-XII Intact, Normal Gait, Oriented x3, Reflexes Normal Neuro motor strength exam: Left Upper Extremity: 5, Right Upper Extremity: 5, Left Lower Extremity: 5, Right Lower Extremity: 5 - Psychiatric Exam Psychiatric exam: Normal Affect, Normal Mood - Skin Skin Exam: Normal Color Assessment and Plan (1) Gait instability Assessment & Plan: Imaging reviewed: CTA Head and Neck; CT Head; MRI Brain -Continue ASA 81 mg PO daily upon d/c -Follow up with PMD and neurology as outpatient within 1 month. No further recommendations. Thank you for this consultation. Zainab Steen DNP, DIRECTOR OF EXHIBIT DEVELOPMENT D/W Dr. Cerda Status: Acute
[2018-05-17 13:11] LABS: T3 0.939 nmol/L (1.49-2.60)
[2018-05-17 16:47] VITALS: BP 121/80; PULSE 60; RESP 16; TEMP 97.9; O2SAT 96
--- NOTE | 2018-05-18 10:56 | CARD ---
APPROVED REPORT Date of service: 05/16/2018 Protocol: LEXISCAN Medications: Atorvastatin 40mg, Medical History: Hypertension, Blurry vision Target HR: 171 bpm Resting ECG: Early repol in inferolateral leads Resting Heart Rate: 54 bpm Resting Blood Pressure: 149/81mmHg submaximum (85%): 145 bpm TEST SUMMARY PREINJECTPRE-INJEC00:[id number]/81.0. [id number]/81.0. INJECTIONNS FLUSH00:[id number]/88.0. INJECTIONNUC MED00:[id number]/88.0. [id number]/77.0. POST EXERCISE Reason for Termination: completed protocol Target HR: No Max HR: 68 bpm 59% of Maximum Predicted HR: 171 bpm Exercise duration: 01:00 min:sec, 0 Stage Exercise capacity: 1.0METs Max Blood Pressure: 149/81mmHg Blood Pressure response to exercise: n/a Heart Rate response to exercise: n/a Chest Pain: No, none Angina index: 0 Arrhythmia: No, none ST Change: No, none Deviation: 0 mm Stress EKG Interpretation T-wave flattening in inferolateral leads noted post lexiscan infusion EXAM: Myocardial Perfusion REST/STRESS Image QualityGood Imaging Protocol The imaging protocol used to acquire images was Rest Tc-99m/stress Tc-99m 2 days Rest Spect myocardial perfusion imaging was performed in supine position 54 minutes following the injection of 10 mCi of Tc-99 Myoview. Time of rest injection: 7:43 Time of rest imagin:37 At peak stress, the patient was injected intravenously with 30mCi of Tc-99 tetrofosmin after an infusion time of minutes and seconds. Time of stress injection: 13:54 Time of stress imagin:15 Gated Stress Spect was performed 81 minutes after intravenous Tc-99 Myoview injection. The images were gated to evaluate regional wall motion and calculate ventricular ejection fraction. NUCLEAR IMAGE INTERPRETATION Study quality was good. Left Ventricular size was Normal at Rest and Stress. LV Perfusion 1 Perfusion Defect Location: basal anterolateral Perfusion Defect Size: Small (1-2 segments) Perfusion Defect Severity: Mild Type of Perfusion Defect: Mixed TCD/TID: No CONCLUSION 1. - Small sized mild intensity mixed basal anteroseptal wall defect 2. - Normal LVEF Recommendation - Low probability for significant obstructive atherosclerotic CAD - Consider clinical correlation for further risk stratification
== END 2018-05-17 16:25 | disposition home or self-care (01) | DRG 313 ==
LOC: H.ER 14:19 → H.ERHOLD 15:40 → H.ICU/CCU 17:25 → H.TEL 05-16 18:34 → OBSVTOIN 05-16 18:48
PROVIDERS: ADMIT Family Medicine; ATTEND Family Medicine
DX: R07.9 Chest pain, unspecified (principal); R26.89 Other abnormalities of gait and mobility; I10 Essential (primary) hypertension; Z79.82 Long term (current) use of aspirin; Z87.440 Personal history of urinary (tract) infections; Z79.899 Other long term (current) drug therapy